=== PATIENT | female | born 1960 | race Caucasian/White ===

== ENCOUNTER 2016-06-21 14:13 | Emergency (ER) | payer OTHER ==
[~2016-06-21] VITALS: Ht 167.6 cm; Wt 75.5 kg
[2016-06-21] MEDS ORDERED: KETOROLAC 30 MG/1 ML IM ONE (15:00)
[2016-06-21] MEDS ORDERED: KETOROLAC 30 MG/1 ML ONE (15:18)
[2016-06-21 15:22] LABS: BLOOD UREA NITROGEN 13 mg/dL (7-18)
[2016-06-21 15:50] VITALS: BP 111/69
== END 2016-06-21 16:26 | disposition home or self-care (01) ==
LOC: ED 15:18
DX: M79.662 Pain in left lower leg (principal); M79.652 Pain in left thigh
CPT/HCPCS: 36415; 80048; 82040; 84436; 84443; 85025; 99285

== ENCOUNTER → 2017-02-02 | Outpatient (CLI) | payer OTHER | END | disposition home or self-care (01) | LOC: CFH 13:46 | PROVIDERS: ATTEND Internal Medicine Cardiovascular Disease | DX: R94.31 Abnormal electrocardiogram [ECG] [EKG] (principal); Z86.73 Personal history of transient ischemic attack (TIA), and cerebral infarction without residual deficits | CPT/HCPCS: 93306 ==